=== PATIENT | female | born 1960 | race Caucasian/White ===

== ENCOUNTER 2025-01-30 16:39 | Emergency (ER) | payer SELFPAY ==
[2025-01-30 16:40] VITALS: BP 138/95; PULSE 63; RESP 18; TEMP 36.6; O2SAT 97; BMI 31.4
--- NOTE | 2025-01-30 20:07 | EDS_ITS ---
HPI History of Present Illness Chief Complaint: Lower Extremity Injury Detail of Chief Complaint: Sent to ER from vascular lab because of clot Informant: patient Onset/Context/Timing Onset: Today Context: Sudden Onset Timing: Continuous Quality: Pain proximal medial right thigh Location: Over varicose veins Current Severity: Mild Maximum Severity: Moderate Worsened by: Palpation Relieved by: Nothing Associated Symptoms Associated Symptoms: No chest discomfort, no pleuritic pain or shortness of Narrative Narrative: Patient is a 64-year-old woman. She had a recent long distance trip to [place]. She has no history of PE or DVT. Patient had outpatient vascular study. Vascular study revealed noncompressible and dilated common greater saphenous vein. The clot is 0.5 cm from the superficial femoral junction to the knee. Below the knee the greater saphenous vein is compressible. Patient denies cardiac or respiratory symptoms. Patient [place] orthostatic symptoms. Patient has no history of peptic ulcer disease, black or maroon- colored stool or kidney disease. Prior similar symptoms: No Recent Illness/Hospitalization: No PFSH PFSH Home Medications ?Medication ?Instructions ?Recorded ?Last Taken ?Type apixaban 5 mg (74 tabs) tablets in See Rx Instructions .Route 01/30/25 Unknown Rx a dose pack (Eliquis DVT-PE Treat .COMPLEX #74 tabs 30D Start) Allergy/AdvReac Type Severity Reaction Status Date / Time No Known Allergies Allergy Verified 01/30/25 16:42 Social History (Updated 01/30/25 @ 20:[address] Duran Pugh MD) Smoking Status: Never smoker substance use type: does not use ROS ROS ED Constitutional Constitutional ED: Denies chills, fever(s), subjective, sweats or weight loss Cardiovascular Cardiovascular: Denies chest pain or palpitations Respiratory/Chest Respiratory/Chest: Denies cough, dyspnea or dyspnea on exertion Gastrointestinal Gastrointestinal: Denies nausea or vomiting Musculoskeletal Musculoskeletal: Denies arthralgias or myalgias Integumentary Denies rash Hematologic/Lymphatic Hematologic/Lymphatic: Reports systems reviewed and no addt'l complaints, except as documented EXAM Physical Exam Const Vital Signs: 01/30/25 16:40 Temperature 97.8 F Temperature Source Oral Pulse Rate 63 Respiratory Rate 18 Blood Pressure 138/95 H Blood Pressure Mean 109 Pulse Ox 97 Oxygen Delivery Method Room Air Positive well nourished and well developed General Appearance ED: well developed and NAD; Negative for pallor Eyes PERRL and EOMs intact bilaterally General Eye ED: Negative for pale conjunctiva Resp normal respiratory effort and clear to auscultation bilaterally Cardio regular rate, regular rhythm, S1 normal heart sound, S2 normal heart sound and no murmurs Extremity Negative for normal to inspection Extremity Narrative: Patient has superficial phlebitis involving the greater saphenous vein. Venous duplex study reveals that this clot is within 0.5 cm of the superficial femoral junction. Therefore this needs to be treated as a DVT. Neuro oriented x3 and CN's II-XII intact bilaterally Sensorium / Orientation: alert Psych mental status grossly normal Skin no rashes or lesions noted, no wounds and skin turgor normal General Skin Exam: Negative for jaundice or pallor MDM MDM MDM Narrative Medical decision making narrative: Patient with provoked clot. Since it is within 10 cm of the superficial vein junction anticoagulation required. Patient was explained there are multiple anticoagulants. She explained risk benefit of each anticoagulant. After discussion patient was prescribed Eliquis. She received her first dose in the emergency department. Management Discussion w/another healthcare provider: Other (Spoke with Mary Shelton's nurse practitioner since there was no report available. The ordering physician Noreen Mcarthur called in. She informing that she attempted to call report however the department was busy and no one took the report.) Discharge Plan Triage Chief Complaint: Lower Extremity Injury ED Provider: Duran Pugh Dx/Rx/DC Orders Clinical Impression: Thrombophlebitis of saphenous vein, Elevated blood pressure reading Instructions: ED Deep Vein Thrombosis (DVT) Prescriptions: New Eliquis DVT-PE Treat 30D Start 5 mg (74 tabs) tablets,dose pack See Rx Instructions .Route .COMPLEX Qty: 74 0RF Rx Instructions: orally per package directions Primary Care Provider: Camila Ghosh Referrals: Camila Ghosh PA-C [Primary Care Provider, Medical] Print Language: Pakistani Disposition Disposition: Home, Self Care
[2025-01-30] MEDS: APIXABAN 5 MG TABLET 10 MG PO (20:27)
[2025-01-30 20:30] VITALS: BP 124/4; PULSE 71; RESP 16; TEMP 36.6; O2SAT 99
== END 2025-01-30 20:32 | disposition home or self-care (01) ==
PROVIDERS: Emergency Provider Emergency Medicine; PCP Family Medicine; Visit Provider Emergency Medicine
DX: I80.01 Phlebitis and thrombophlebitis of superficial vessels of right lower extremity (principal); R03.0 Elevated blood-pressure reading, without diagnosis of hypertension
CPT/HCPCS: 99282

== ENCOUNTER → 2025-01-30 | Outpatient (CLI) | payer SELFPAY ==
--- NOTE | 2025-01-30 15:52 | VDLE_ITS ---
Reason For Study Reason For Study: RLE PAIN RIGHT LEFT CFV is compressible, spontaneous, phasic, competent CFV is compressible, spontaneous, phasic, competent, and demonstrates normal augmentation. and demonstrates normal augmentation. FV is compressible, spontaneous, phasic, competent and demonstrates normal augmentation. POP V is compressible, spontaneous, phasic, competent and demonstrates normal augmentation. T/P Trunk is compressible. PTV is compressible. RT PerV is compressible. GSV is NONCOMRESSIBLE & DILATED C/W ACUTE SVT 0.5 CM from SFJ to knee. GSV below knee is compressible. SSV is NONCOMPRESSIBLE & DILATED C/W ACUTE SVT. Multiple thromus filled varicosities noted in the groin & throughout prox/mid thigh. Procedure This is a venous duplex using B-mode, color flow and spectral Doppler. Exam performed in department. Unable to contact ordering provider, Noreen Mcgrath NP- [place]. Multiple attempts were made (4). Took patient to ED for service. VL/Venous Duplex US, Unilateral Interpretation Summary Deep veins of the right lower extremity are patent and compressible segmentally . There is no evidence of right lower extremity deep vein thrombosis. Valvular competence appears intact within the p roximal deep venous system on the right . Acute superficial thrombophlebitis is noted in the right great saphenous vein f rom within 0.5 centimeters of the right sapheno-femoral junction to the right knee. Acute superficial thrombophlebitis is noted in the right small saphenous vein. Acute superficial thrombophlebitis is noted involving multiple superficia l varicosities in the right groin, proximal thigh, and mid-thigh. Ordering Physician: Noreen Mcgrath Referring Physician: Noreen Mcgrath Performed By: Christina Miller, RDCS, RVT
== END | disposition home or self-care (01) ==
LOC: CVS 15:49
PROVIDERS: PCP Family Medicine; Referring Provider Nurse Practitioner Family; Visit Provider Nurse Practitioner Family
DX: I83.91 Asymptomatic varicose veins of right lower extremity (principal); Z83.2 Family history of diseases of the blood and blood-forming organs and certain disorders involving the immune mechanism; Z78.9 Other specified health status; M79.604 Pain in right leg
CPT/HCPCS: 93971